=== PATIENT | male | born 1960 | race African-American/Black ===

== ENCOUNTER 2016-07-26 07:50 | Emergency (ER) | payer OTHER ==
[~2016-07-26] VITALS: Ht 170.2 cm; Wt 73.0 kg
[~2016-07-26 07:50] MED LIST: ASPI-664 PO; AUG875 PO; ESCI10TA PO; ESTR1.2510 PO; IBUP-1542 PO; IBUP800T25 PO; LURA80TA PO; OXYM15SP34 NASAL; SPIR50TA PO
[2016-07-26 07:52] VITALS: Ht 170.2 cm; Wt 73.0 kg
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
[2016-07-26 09:39] LABS: BASOPHILS % 0.4 % (0.0-2.0); EOSINOPHILS % 0.3 % (0.0-7.0); HEMOGLOBIN 14.8 g/dl (14.0-18.0); LYMPHOCYTES # 2.1 10^3/ul (0.8-2.9); LYMPHOCYTES % 28.3 % (15.0-51.0); MEAN CORPUSCULAR HEMOGLOBIN 30.5 pg (29.0-33.0); MEAN CORPUSCULAR HGB CONC 33.6 g/dl (32.0-37.0); MEAN CORPUSCULAR VOLUME 90.8 fl (82.0-101.0); MEAN PLATELET VOLUME 8.7 fl (7.4-10.4); MONOCYTE # 0.6 10^3/ul (0.3-0.9); MONOCYTES % 8.3 % (0.0-11.0); NEUTROPHIL # 4.6 10^3/ul (1.6-7.5); NEUTROPHILS % 62.7 % (39.0-77.0); PLATELET COUNT 251 10^3/UL (140-440); RED BLOOD COUNT 4.85 10^6/ul (4.70-6.10); RED CELL DISTRIBUTION WIDTH 14.2 % (11.5-14.5); UNCORRECTED WBC 7.4 10^3/ul (4.8-10.8); WHITE BLOOD COUNT 7.4 10^3/ul (4.8-10.8)
[2016-07-26 09:50] LABS: ALBUMIN 4.5 g/dl (3.3-4.9); CHLORIDE 100 mmol/L (97-110); CONDITION 1; SODIUM 142 mmol/L (135-144)
[2016-07-26 09:53] LABS: ALANINE AMINOTRANSFERASE 61 IU/L (13-69); ALKALINE PHOSPHATASE 65 IU/L (42-121); ANION GAP 22 (8-16); ASPARTATE AMINO TRANSFERASE 63 IU/L (15-46); BILIRUBIN,INDIRECT 0.3 mg/dl (0-1.1); BILIRUBIN,TOTAL 0.3 mg/dl (0.2-1.3); BLOOD UREA NITROGEN 20 mg/dl (7-20); CARBON DIOXIDE 24 mmol/L (21-31); CREATININE 0.95 mg/dl (0.61-1.24); GLUCOSE 101 mg/dl (70-220)
[2016-07-26 09:54] LABS: CALCIUM 9.3 mg/dl (8.4-10.2)
[2016-07-26 10:05] LABS: TROPONIN-I < 0.012 ng/ml (0.00-0.12)
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
--- NOTE | 2016-07-26 11:18 | RADRPT ---
PROCEDURE: XR Lumbar Spine. CLINICAL INDICATION: Low back pain. TECHNIQUE: Three-view of the lumbar spine are available for review COMPARISON: None available FINDINGS: There is mild L4-5 degenerative disk disease. This is associated with disk space narrowing, endpla te sclerosis and spondylosis. The vertebral bodies are otherwise normal in mineralization, architec ture and alignment. No fractures or osseous lesions are identified. No subluxation is demonstrated . The facet joints are unremarkable. The soft tissues are unremarkable. IMPRESSION: Mild L4-5 degenerative disk disease. RPTAT: HGDB .Jorge Mckeon MD, Date Time Electronically viewed and signed by .Jorge Mckeon MD, on 07/26/2016 11:18 .B/
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
[2016-07-26] MEDS ORDERED: IBUP-1542 PO (11:22)
[2016-07-26 11:40] VITALS: BP 150/90; PULSE 79; RESP 19; TEMP 98.2
== END 2016-07-26 11:42 | disposition home or self-care (01) ==
LOC: FTE 07:50
DX: I10 Essential (primary) hypertension (principal); M54.5 Low back pain; Z79.82 Long term (current) use of aspirin
CPT/HCPCS: 36415; 71010; 72072; 72100; 80053; 84484; 85025; 93005; Z7502; Z7610

== ENCOUNTER 2016-09-15 11:32 | Emergency (ER) | payer OTHER ==
[~2016-09-15] VITALS: Wt 80.0 kg
[2016-09-15] MEDS ORDERED: LORAZEPAM 2 MG INJ ONE (11:37)
[2016-09-15] MEDS ORDERED: LORAZEPAM 2 MG INJ IM ONE (12:00)
--- NOTE | 2016-09-15 12:08 | ERD ---
ER Documentation Chief Complaint Date/Time DATE: 09/15/16 TIME: 12:05 Chief Complaint ADMITS TO METH USE HPI 56-year-old man brought in by EMS for public intoxication. He admits to using methamphetamine today and has methamphetamine addiction. He denies suicidal homicidal ideation, no recent fevers or chills, no chest pain, no shortness of breath, no vomiting or diarrhea. Patient was minding his own business although [employer] called 911. ROS All systems reviewed and are negative except as per history of present illness. Medications Home Meds Active Scripts Ibuprofen* (Motrin*) 600 Mg Tab, 600 MG PO Q6, #20 TAB Prov:SHAQ PARRISH NP 07/26/16 Oxymetazoline Hcl* (Afrin [place]*) 0.05% - 15 Ml [place], 2 SPRAYS NASAL BID, #1 EA to each nostril Prov:JENNIFER STEELE DO 06/11/16 Amoxicillin-Clavulanate K* (Augmentin*) 875 Mg Tab, 875 MG PO BID for 10 Days Prov:KRYSTEN LONGORIA PA-C 05/21/15 Ibuprofen* (Motrin*) 600 Mg Tab, 600 MG PO Q6, #20 TAB Prov:KRYSTEN LONGORIA PA-C 05/21/15 Reported Medications Ibuprofen* (Motrin*) 800 Mg Tab, 800 MG PO Q6 Y for TID, TAB 10/02/14 Escitalopram Oxalate* (Lexapro*) 10 Mg Tablet, 10 MG PO DAILY, TAB 07/25/14 Lurasidone Hcl (LATUDA) 80 Mg Tablet, 80 MG PO DAILY 07/25/14 Aspirin* (Aspirin* (EC)) 81 Mg Tablet.dr, 81 MG PO DAILY, TAB 07/25/14 Spironolactone* (Aldactone*) 50 Mg Tablet, 50 MG PO DAILY, TAB 07/25/14 Estrogens Conjugated* (Premarin*) 1.25 Mg Tablet, 2.5 MG PO DAILY, TAB 07/25/14 Allergies Allergies: Coded Allergies: No Known Allergy (Verified , 05/21/15) PMhx/Soc Hypertension, methamphetamine abuse History of Surgery: No Anesthesia Reaction: No Hx Neurological Disorder: No Hx Respiratory Disorders: No Hx Cardiac Disorders: No Hx Psychiatric Problems: No Hx Miscellaneous Medical Probl: No Hx Alcohol Use: No Hx Substance Use: No Hx Tobacco Use: No Smoking Status: Never smoker FmHx Family History: No diabetes Physical Exam Vitals Vital Signs Date Time Temp Pulse Resp B/P Pulse Ox O2 Delivery O2 Flow Rate FiO2 09/15/16 11:39 98.0 105 22 168/98 99 Physical Exam GENERAL: Well-developed, well-nourished, well-hydrated, appears intoxicated HEENT: Moist mucous membranes, pink conjunctiva, no cervical spine tenderness or step-off deformities, no goiter, no jaundice or icterus, extraocular movements intact without pain. No submandibular induration, and no pharyngeal erythema NEURO: Alert and oriented 3, cranial nerves II through XII intact bilaterally, pupils equal round reactive to light, no focal deficits or facial asymmetry, sensation intact distally Strength 5/5 in upper and lower extremities bilaterally, chronic drug-induced tardive dyskinesia CARDIAC: Tachycardic and regular, no murmurs rubs or gallops LUNGS: Clear bilaterally no wheezing crackles or stridor ABDOMEN: Soft nontender, no guarding, no rigidity, no rebound, no psoas sign no obturator sign. Normoactive bowel sounds SKIN: Warm and dry to touch, no abrasions, contusions, or hematomas, no lacerations, no ecchymosis, no target lesions, and without ulcers EXTREMITIES: No clubbing cyanosis or edema, calves are bilaterally symmetrical, no Homans sign, no popliteal cord sign. Distal pulses equal and bilateral PSYCH: Appears intoxicated and agitated Results 24 hrs Current Medications Medications (Trade) Dose Ordered Sig/Marycarmen Route PRN Reason Start Time Stop Time Status Last Admin Dose Admin Lorazepam (Ativan) 2 mg ONCE ONCE IM 09/15/16 12:00 09/15/16 12:01 DC 09/15/16 11:45 Procedures/MDM Patient was placed on electronic device monitor rhythm strip revealed a sinus tachycardia at 100 bpm with upright P and T waves. Patient was afebrile. I administered lorazepam 2 mg intramuscular injection for his symptoms with improvement. Patient was given a meal tray here in about 24 ounces of ice water and juice. His vital signs improved, mental status improved, and he had no acute psychiatric complaints. Differential diagnoses considered, included but not limited to acute coronary syndrome, pulmonary embolism, aortic dissection, abdominal aortic aneurysm, sepsis, stroke, meningitis, encephalitis, pneumonia, appendicitis, cholecystitis , bowel obstruction, pyelonephritis, nephrolithiasis, cystitis, as well as metabolic, hematologic, and electrolyte abnormalities. As well as abscess, cellulitis, fractures, and dislocations. Patient feels much better at this time, and vital signs are normal, symptoms have improved. I did give strict instructions to return to the ED if symptoms continue or worsen, patient will otherwise follow-up with primary care physician. Patient understood instructions and agreed to plan. Departure Diagnosis: Primary Impression: Methamphetamine abuse Condition: Good Patient Instructions: Understanding Methamphetamine Abuse and Addiction MARTY TURNER MD Sep 15, 2016 12:08
[2016-09-15] MEDS ORDERED: SOD CHLORIDE 0.9% 1,000 ML IV STA (12:28)
[2016-09-15] MEDS ORDERED: LORAZEPAM 2 MG INJ IV ONE ×2 (12:30→18:30)
[2016-09-15] MEDS ORDERED: HALOPERIDOL 5 MG INJ ONE (14:02)
[2016-09-15] MEDS ORDERED: HALOPERIDOL 5 MG INJ IV ONE (14:30)
[2016-09-15 17:00] VITALS: TEMP 98.3
[2016-09-15 18:30] VITALS: RESP 18
[2016-09-15 21:10] VITALS: BP 142/90; PULSE 85
== END 2016-09-15 21:17 | disposition home or self-care (01) ==
LOC: E/R 11:32
DX: F15.10 Other stimulant abuse, uncomplicated (principal); R40.2142 Coma scale, eyes open, spontaneous, at arrival to emergency department; R40.2362 Coma scale, best motor response, obeys commands, at arrival to emergency department; R40.2252 Coma scale, best verbal response, oriented, at arrival to emergency department; I10 Essential (primary) hypertension; Z79.82 Long term (current) use of aspirin
CPT/HCPCS: 96372; 96374; 96375; J1630; J2060; J7030; Z7502

== ENCOUNTER 2016-11-09 22:05 | Emergency (ER) | payer OTHER ==
[~2016-11-09] VITALS: Ht 170.2 cm; Wt 62.5 kg
[~2016-11-09 22:05] MED LIST changes: -AUG875 PO; -IBUP-1542 PO
[2016-11-09 22:07] VITALS: Ht 170.2 cm; Wt 62.5 kg
--- NOTE | 2016-11-09 22:59 | ERD ---
ER Documentation Chief Complaint Date/Time DATE: 11/09/16 TIME: 22:48 Chief Complaint chronic bilateral feet pain, right nostril pain HPI 56-year-old homeless male presents with chief complaint of bilateral burning foot pain x 1 year. States that both of his parents had history of diabetes, he has not been tested for it but believes this may be causing his pain. He denies any trauma, fever, swelling, and erythema. In addition he complains of right nostril pain 3 weeks, which started after snorting methamphetamine. He notes occasional bleeding from intranasal wounds. Has not used any medications for relief of symptoms, but states when does not healed over 3 weeks. Currently rates the pain in his feet a 7 out of 10 in severity, and is worse at night. ROS All systems reviewed and are negative except as per history of present illness. Medications Home Meds Active Scripts Sodium Chloride (Saline Nasal Mist) 126 Ml Mist, 1 SPRAY NASAL TID for 7 Days, # 1 BOTTLE Prov:Shameka Diaz PA-C 11/09/16 Mupirocin Calcium* (Bactroban* Nasal) 2% -1 Gram Oint...g., 1 APPLIC NASAL BID for 7 Days, #1 TUB Prov:Shameka Diaz PA-C 11/09/16 Gabapentin* (Gabapentin*) 300 Mg Capsule, 300 MG PO DAILY, #30 CAP Prov:Shameka Diaz PA-C 11/09/16 Oxymetazoline Hcl* (Afrin [place]*) 0.05% - 15 Ml [place], 2 SPRAYS NASAL BID, #1 EA to each nostril Prov:JENNIFER STEELE DO 06/11/16 Reported Medications Ibuprofen* (Motrin*) 800 Mg Tab, 800 MG PO Q6 Y for TID, TAB 10/02/14 Escitalopram Oxalate* (Lexapro*) 10 Mg Tablet, 10 MG PO DAILY, TAB 07/25/14 Lurasidone Hcl (LATUDA) 80 Mg Tablet, 80 MG PO DAILY 07/25/14 Aspirin* (Aspirin* (EC)) 81 Mg Tablet.dr, 81 MG PO DAILY, TAB 07/25/14 Spironolactone* (Aldactone*) 50 Mg Tablet, 50 MG PO DAILY, TAB 07/25/14 Estrogens Conjugated* (Premarin*) 1.25 Mg Tablet, 2.5 MG PO DAILY, TAB 1/20/15 Allergies Allergies: Coded Allergies: No Known Allergy (Verified , 05/21/15) PMhx/Soc Medical and Surgical Hx: pt denies Medical Hx, pt denies Surgical Hx History of Surgery: No Anesthesia Reaction: No Hx Neurological Disorder: No Hx Respiratory Disorders: No Hx Cardiac Disorders: No Hx Psychiatric Problems: No Hx Miscellaneous Medical Probl: No Hx Alcohol Use: Yes Hx Substance Use: Yes Hx Tobacco Use: Yes Smoking Status: Current every day smoker Physical Exam Vitals Vital Signs Date Time Temp Pulse Resp B/P Pulse Ox O2 Delivery O2 Flow Rate FiO2 11/09/16 22:07 98.1 89 20 148/90 98 Physical Exam GENERAL: Non-toxic. No apparent signs of distress. HEENT: Atraumatic. Bilateral eyes are PERRL EOM intact. Normal conjunctiva, no injection. No eyelid or lower eyelid swelling noted. Ears: Normal tympanic membrane, no erythema or bulging. No ear canal swelling. No ear discharge. Nose : no nasal discharge, no epistaxis. Throat: Oropharynx normal. Tongue pink and moist. No tonsillar swelling or tonsillar exudates. No lymphadenopathy. LUNGS: Clear to auscultation. No accessory muscle use. No wheezing, no crackles. No signs or symptoms of respiratory distress. HEART: Regular rate and rhythm. No murmurs, clicks, rubs or gallops. BACK: No midline tenderness, no costovertebral tenderness. EXTREMITIES: No peripheral cyanosis or edema. No focal pain or notable trauma. Full range of motion. Good capillary refill. 2+ dorsalis pedis pulses bilaterally. NEURO: The patient moves all 4 extremities with 5/5 strength. Cranial nerves are grossly intact. Normal mental status for age. Good muscle tone. Sensation intact in bilateral feet. SKIN: There is no apparent rash, petechiae, erythema or swelling. Good skin turgor. Procedures/MDM Patient presents with chronic bilateral foot pain, that he describes as a burning sensation. States that both parents had history of diabetes. He has not been tested for diabetes before, suggested follow-up with a [facility] for hemoglobin H1 C lab. In the meantime I explained that symptoms are likely due to diabetic neuropathy or other cause for peripheral neuropathy. On examination he is full range of motion bilateral feet, 2+ dorsalis pedis pulse, full sensation intact in bilateral toes, good cap refill in toes. He denies any trauma. He has no edema or erythema. I was suspicion for cellulitis, diabetic foot ulcer, fracture, and neurovascular conference. I prescribed gabapentin, however only for a short period of time until he is able to follow- up and get further workup for diabetes and peripheral neuropathy. In addition patient complained of nonhealing wound in the right nostril after snorting methamphetamine 3 weeks ago. I suggested use of Bactroban ointment to prevent infection, and avoid touching the area or snorting any substances until lesion heals. On examination there is no active epistaxis or discharge. I have low suspicion for septal hematoma or nasal fracture. Patient of methamphetamine use discussed in detail for at least 3 minutes, health risks associated with drug use discussed. Patient stable for discharge and outpatient management. Advised to follow-up with PCP or community clinic in 1-2 days. List of community clinics provided. Strict return precautions discussed. Departure Diagnosis: Primary Impression: Foot pain Laterality: bilateral Qualified Code: M79.671 - Pain in both feet Additional Impressions: Open wound, nose, without complication Encounter type: initial encounter Qualified Code: S01.20XA - Open wound, nose, without complication, initial encounter Homelessness Methamphetamine use Condition: Shameka Lockhart PA-C November 09, 2016 22:59
[2016-11-09] MEDS ORDERED: MUPI1OIN5 NASAL (23:31)
[2016-11-09] MEDS ORDERED: GABA300C16 PO (23:31)
[2016-11-09] MEDS ORDERED: SODI126M NASAL (23:31)
== END 2016-11-09 23:38 | disposition home or self-care (01) ==
LOC: FTE 22:05
DX: M79.671 Pain in right foot (principal); M79.672 Pain in left foot; S01.20XA Unspecified open wound of nose, initial encounter; F17.210 Nicotine dependence, cigarettes, uncomplicated; F15.90 Other stimulant use, unspecified, uncomplicated; X58.XXXA Exposure to other specified factors, initial encounter; Y92.9 Unspecified place or not applicable; Z59.0 Homelessness; Z79.82 Long term (current) use of aspirin
CPT/HCPCS: 99284

== ENCOUNTER 2019-01-12 21:37 | Emergency (ER) | payer OTHER ==
[~2019-01-12] VITALS: Ht 175.3 cm; Wt 72.7 kg
[~2019-01-12 21:37] MED LIST changes: +ASPI-1046 PO; -ASPI-664 PO; -ESTR1.2510 PO; +GABA300C16 PO; -IBUP800T25 PO; +IBUP800T48 PO; +MUPI1OIN5 NASAL; +PREM125 PO; +SODI126M NASAL
[2019-01-12 21:55] VITALS: Ht 175.3 cm; Wt 72.7 kg
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
[2019-01-13] MEDS ORDERED: DIPHTH/TET/ACEL PERTUSS (ADULT) 0.5 ML VIAL IM* ONE (00:30)
--- NOTE | 2019-01-13 01:20 | PSY ---
Date/Time of Note Date/Time of Note DATE: 01/13/19 TIME: 01:18 Psychiatric Subjective Eval Consent Pt consented to telemedicine: Yes Subjective Evaluation Patient location: emergency Chief Complaint: BIB RA for psych evaluation Medical history Problems Medical Problems: (1) Back pain Status: Acute (2) Dizziness Status: Acute (3) Foot pain Status: Acute (4) Homelessness Status: Acute (5) Hypertension Status: Acute (6) Methamphetamine abuse Status: Acute (7) Methamphetamine use Status: Acute (8) Nasal congestion Status: Acute (9) Open wound, nose, without complication Status: Acute (10) Self-inflicted laceration of wrist Status: Acute (11) Suicidal ideation Status: Acute Allergies: Coded Allergies: No Known Allergy (Verified , 05/21/15) Psychiatric Objective Eval Mental Status Examination: Laboratory Results Laboratory Tests Test 01/12/19 21:58 01/12/19 22:59 White Blood Count 7.0 10^3/ul Red Blood Count 4.66 10^6/ul Hemoglobin 14.3 g/dl Hematocrit 42.3 % Mean Corpuscular Volume 90.8 fl Mean Corpuscular Hemoglobin 30.7 pg Mean Corpuscular Hemoglobin Concent 33.8 g/dl Red Cell Distribution Width 14.3 % Platelet Count 231 10^3/UL Mean Platelet Volume 10.6 fl Immature Granulocytes % 0.100 % Neutrophils % 29.5 % Lymphocytes % 59.0 % Monocytes % 9.4 % Eosinophils % 1.4 % Basophils % 0.6 % Nucleated Red Blood Cells % 0.0 /100WBC Immature Granulocytes # 0.010 10^3/ul Neutrophils # 2.1 10^3/ul Lymphocytes # 4.1 10^3/ul Monocytes # 0.7 10^3/ul Eosinophils # 0.1 10^3/ul Basophils # 0.0 10^3/ul Nucleated Red Blood Cells # 0.0 10^3/ul Sodium Level 144 mmol/L Potassium Level 3.8 mmol/L Chloride Level 112 mmol/L Carbon Dioxide Level 20 mmol/L Anion Gap 12 Blood Urea Nitrogen 16 mg/dl Creatinine 1.16 mg/dl Est Glomerular Filtrat Rate mL/min > 60 mL/min Glucose Level 103 mg/dl Calcium Level 9.4 mg/dl Total Bilirubin 0.2 mg/dl Direct Bilirubin 0.00 mg/dl Indirect Bilirubin 0.2 mg/dl Aspartate Amino Transf (AST/SGOT) 30 IU/L Alanine Aminotransferase (ALT/SGPT) 22 IU/L Alkaline Phosphatase 54 IU/L Total Protein 7.6 g/dl Albumin 3.9 g/dl Globulin 3.70 g/dl Albumin/Globulin Ratio 1.05 Salicylates Level < 1.0 mg/dl Acetaminophen Level < 10.0 ug/ml Ethyl Alcohol Level 148.0 mg/dl Urine Color STRAW Urine Clarity CLEAR Urine pH 6.0 Urine Specific [place] 1.008 Urine Ketones NEGATIVE mg/dL Urine Nitrite NEGATIVE mg/dL Urine Bilirubin NEGATIVE mg/dL Urine Urobilinogen NEGATIVE mg/dL Urine Leukocyte Esterase NEGATIVE Laquita/ul Urine Microscopic RBC 0 /HPF Urine Microscopic WBC 0 /HPF Urine Hemoglobin 1+ mg/dL Urine Glucose 1+ mg/dL Urine Total Protein NEGATIVE mg/dl Urine Opiates Screen Negative Urine Barbiturates Negative Urine Amphetamines Screen Negative Urine Benzodiazepines Screen Negative Urine Cocaine Screen Negative Urine Cannabinoids Negative Assessment and Plan Recommendation/Plan Discharge Disposition: Psychiatric inpatient Legal Status: Voluntary Assessment Additional comments: IDENTIFYING INFORMATION: 58 year old AAM who identifies as a female patient who is currently located at the hospital and for whom psychiatric consultation was requested. SOURCES OF INFORMATION: The patient who appears to be somewhat reliable and the medical records; the nursing staff. CHIEF COMPLAINT: "I felt like killing myself". HISTORY OF PRESENT ILLNESS: The patient was interviewed via telemedicine in the presence of and under the supervision of nursing staff of the hospital. The consent to conducting this interview via telemedicine was obtained by the nursing staff at the hospital. BISMARK Vidales reports that the patient presented with SI, paranoid thoughts. The patient reports having paranoid delusions of drug dealers, SI and cut herself with intent to kill herself and to get out of the dangerous situation she was in. She reports that the drug dealers wont leave her alone, there is a conspiracy going on against her. Admits to feeling depressed. The patient denies using alcohol heavily or regularly. The patient denies using any other substances. In terms of past psychiatric history, the patient reports having a history of past psychiatric hospitalizations. The patient reports having a history of past suicide attempts. Past medication trials: latuda. PAST MEDICAL HISTORY: HTN, borderline DM. CURRENT MEDICATIONS: none. ALLERGIES TO MEDICATIONS: NKDA. LABORATORY TESTS: CBC wnl, CMP wnl, UDS -, alcohol level 148. SOCIAL HISTORY: homeless, single, no kids, retired, not employed; REVIEW OF SYSTEMS: Constitutional (e.g., fever, weight loss): negative; Eyes, Ears, Nose, Mouth, Throat: negative; Cardiovascular: negative; Respiratory: negative; Gastrointestinal: negative; Genitourinary: negative; Musculoskeletal: negative; Integumentary (skin and/or breast): negative; Neurological: negative; Psychiatric: as per HPI; Endocrine: negative; Hematologic/Lymphatic: negative; Allergic/Immunologic: negative. MENTAL STATUS EXAMINATION: General Appearance and Behavior: Calm, cooperative with the interview, pleasant with the current interviewer, makes fair eye contact, fairly groomed, no abnormal movements noted, Speech: Regular rate, regular rhythm, normal latency, normal volume, somewhat decreased amount, Flow of thought: sequential, logical, goal-directed at times, illogical at times, Content of thought: no auditory hallucinations, no visual hallucinations, + delusions, positive for suicidal ideation; no homicidal ideation, Mood: "depressed", Affect: dysthymic, dysphoric, not reactive, Attention: normal based on the interview, Insight: fair, Judgment: poor, Memory: normal based on the interview, Sensorium: alert and oriented to person, place and date. ASSESSMENT: The patient's presentation and history are consistent with the diagnosis of unspecified psychotic disorder. The patient presents with depressive and psychotic symptoms in the context of medication noncompliance, psychosocial stressors and substance use. PLAN: - Medication management: Would start latuda 40 mg po qday. Would start haloperidol 5 mg IM PRN severe agitation q4 hours. Would start diphenhydramine 50 mg IM PRN severe agitation q4 hours. Would start lorazepam 2 mg IM PRN severe agitation q4 hours Will defer to the inpatient psychiatry team for other medication changes. - Labs: No other laboratory tests are needed at this time. - Psychotherapy: Provided supportive psychotherapy and psychoeducation. - Disposition: Would recommend voluntary admission to the inpatient psychiatric unit as the patient would benefit from such an intervention so long as the patient has been cleared medically for admission to psychiatry. The patient is agreeable to being hospitalized in the inpatient psychiatric unit at this time. Would place on huertas icide precautions. NAYA SINHA MD Jan 13, 2019 01:20
[2019-01-13] MEDS ORDERED: NICARDipine HCL 30 MG CAPSULE PO ONE (07:00)
[2019-01-13 07:37] VITALS: BP 136/91; PULSE 84; RESP 16
== END 2019-01-13 08:01 ==
LOC: E/R 21:37
DX: R45.851 Suicidal ideations (principal); S61.512A Laceration without foreign body of left wrist, initial encounter; I10 Essential (primary) hypertension; F17.210 Nicotine dependence, cigarettes, uncomplicated; X58.XXXA Exposure to other specified factors, initial encounter; Y92.9 Unspecified place or not applicable; Z23 Encounter for immunization; Z79.82 Long term (current) use of aspirin
CPT/HCPCS: 12002; 80053; 80307; 81001; 85025; 90471; 90715; Z7502; Z7610